=== PATIENT | female | born 1935 | race Caucasian/White ===

== ENCOUNTER → 2023-02-15 | Outpatient (CLI) | payer MEDICARE, SELFPAY ==
--- NOTE | 2023-02-15 08:38 | CDU_ITS ---
Reason For Study: CAROTID STENOSIS Rt. Velocities/BP Lt. Velocities/BP Prox CCA 73.0/15.4 cm/sec. Prox CCA 129.3/16.3 cm/sec. Mid CCA 79.6/15.4 cm/sec. Mid CCA 97.7/16.7 cm/sec. Dist CCA 90.0/22.0 cm/sec. Dist CCA 86.7/13.0 cm/sec. Prox ICA 77.6/12.7 cm/sec. Prox ICA 261.3/84.7 cm/sec. Mid ICA 94.1/14.9 cm/sec. Mid ICA 155.0/32.0 cm/sec. Dist ICA 159.4/34.2 cm/sec. Dist ICA 115.5/32.0 cm/sec. Rt. ICA/CCA = 159.4/79.6=2.0. Lt. ICA/CCA = 261.3/97.7=2.7. Prox ECA 77.6/4.0 cm/sec. Prox ECA 114.3/0.0 cm/sec. Rt. Vert. 54.5/16.0 cm/sec. Lt. Vert. 48.1/6.5 cm/sec. Right Extracranial There is heterogeneous, irregular atherosclerotic plaque noted in the right common carotid artery. There is heterogeneous, irregular atherosclerotic plaque noted in the right internal carotid artery. There is heterogeneous, irregular atherosclerotic plaque noted in the right external carotid artery. Antegrade flow is noted in the right vertebral artery. There is heterogeneous, irregular atherosclerotic plaque noted in the right bulb. Left Extracranial There is heterogeneous, irregular atherosclerotic plaque noted in the left common carotid artery. There is heterogeneous, irregular atherosclerotic plaque noted in the left internal carotid artery. The atherosclerotic plaque causes acoustic shadowing. There is heterogeneous, irregular atherosclerotic plaque noted in the left external carotid artery. Antegrade flow is noted in the left vertebral artery. There is heterogeneous, irregular atherosclerotic plaque noted in the left bulb. Procedure Carotid Duplex [id number]. This is a Carotid Duplex examination using B-mode, color flow and specral Doppler. Exam performed in department. VL/Carotid Duplex Ultrasound Interpretation Summary Mild (<50%) stenosis right extracranial internal carotid. Severe (>70%) stenosi s left extracranial internal carotid. Flow within the vertebral arteries is antegrade bilaterally. Ordering Physician: Israel Titus Referring Physician: Paola Rosario Performed By: Bharti Auguste, RASHEL, RVT
== END | disposition home or self-care (01) ==
PROVIDERS: PCP Internal Medicine; Referring Provider Surgery Vascular Surgery; Visit Provider Surgery Vascular Surgery
DX: I65.23 Occlusion and stenosis of bilateral carotid arteries (principal)
CPT/HCPCS: 93880

== ENCOUNTER → 2024-06-05 | Outpatient (CLI) | payer MEDICARE, OTHER, SELFPAY ==
--- NOTE | 2024-06-05 08:36 | CDU_ITS ---
Reason For Study Reason For Study: ICA Stenosis Rt. Velocities/BP Lt. Velocities/BP Prox CCA 84.5/17.1 cm/sec. Prox CCA 79.6/9.8 cm/sec. Mid CCA 87.1/17.1 cm/sec. Mid CCA 74.2/17.5 cm/sec. Dist CCA 126.0/24.9 cm/sec. Dist CCA 101.6/19.4 cm/sec. Prox ICA 72.3/13.9 cm/sec. Prox ICA 225.0/53.7 cm/sec. Mid ICA 94.5/22.2 cm/sec. Mid ICA 189.4/44.0 cm/sec. Dist ICA 93.9/17.8 cm/sec. Dist ICA 116.3/28.2 cm/sec. Rt. ICA/CCA = 1.1. Lt. ICA/CCA = 3.0. Prox ECA 64.8/0.0 cm/sec. Prox ECA 96.1/4.7 cm/sec. Rt. Vert. 97.9/15.7 cm/sec. Lt. Vert. 20.6/0.0 cm/sec. Right Extracranial There is heterogeneous, irregular atherosclerotic plaque noted in the right common carotid artery. The right common carotid artery is tortuous. There is heterogeneous, irregular atherosclerotic plaque noted in the right internal carotid artery. The right internal carotid artery is very tortuous. There is heterogeneous, irregular atherosclerotic plaque noted in the right external carotid artery. Antegrade flow is noted in the right vertebral artery. Left Extracranial There is heterogeneous, irregular atherosclerotic plaque noted in the left common carotid artery. The left common carotid artery is tortuous. There is heterogeneous, irregular atherosclerotic plaque noted in the left internal carotid artery. The left internal carotid artery is very tortuous. The atherosclerotic plaque causes acoustic shadowing. There is intimal thickening but no significant atherosclerotic plaque noted in the left external carotid artery. Antegrade flow is noted in the left vertebral artery. Procedure Carotid Duplex [id number]. This is a Carotid Duplex examination using B-mode, color flow and specral Doppler. The exam was diagnostic. Exam performed in department. VL/Carotid Duplex Ultrasound Interpretation Summary Mild (<50%) stenosis right extracranial internal carotid. Moderate (50-69%) mike nosis left extracranial internal carotid. Patent and antegrade vertebrals bilaterally. Ordering Physician: Israel Titus Referring Physician: Paola Rosario Performed By: Abe Kearns RVT
== END | disposition home or self-care (01) ==
PROVIDERS: PCP Internal Medicine; Referring Provider Surgery Vascular Surgery; Visit Provider Surgery Vascular Surgery
DX: I65.23 Occlusion and stenosis of bilateral carotid arteries (principal); I10 Essential (primary) hypertension; Z86.73 Personal history of transient ischemic attack (TIA), and cerebral infarction without residual deficits
CPT/HCPCS: 93880

== ENCOUNTER → 2024-07-07 | Outpatient (CLI) | payer MEDICARE, OTHER, SELFPAY ==
--- NOTE | 2024-07-07 09:21 | US_ITS ---
PROCEDURE: SPLEEN 07/07/2024 REASON FOR EXAM: SPLEEN SIZE TECHNIQUE: Ultrasound of the left upper quadrant. COMPARISON: None FINDINGS: Left kidney: Measures 8.6 cm. Mildly atrophic. Unremarkable cortex. Cyst measuring 1.4 x 1.3 x 1.2 cm and 0.8 x 0.7 x 0.7 cm. Spleen: Unremarkable. Measures 8.8 x 4.1 x 3.6 cm. Pancreas: Atrophic. Normal in echogenicity. US/Spleen IMPRESSION: Spleen measures 8.8 x 4.1 x 3.6 cm. Atrophic left kidney and pancreas. Cyst within the left kidney. Otherwise unr emarkable exam. Reading Location: [id number]
[2024-07-07 10:14] LABS: Hemoglobin 9.3 g/dL (12.0-15.0); Immature Platelet Fraction 17.9 % (1.0-7.9); Mean Corpuscular Hgb 29.1 pg (27.0-32.0); Mean Corpuscular Volume 93.8 fL (81-99); POSITIVE COUNT YES; POSITIVE DIFFERENTIAL YES; POSITIVE MORPHOLOGY YES; Platelet Count 154 K/mm3 (150-450); RBC Distribution Width CV 19.9 % (11.6-14.6); RBC Distribution Width SD 67.7 fl (35.1-43.9)
[2024-07-07 10:18] LABS: Differential Indicated MANUAL DIFF; White Blood Count 31.3 K/mm3 (4.4-11.0)
[2024-07-07 11:00] LABS: Basophil 1 % (0-1); Eosinophil 2 % (0-5); Lymphocyte 5 % (19-41); Metamyelocyte 15 % (0-1); Monocyte 6 % (0-10); Myelocyte 2 % (0-0); Neutrophil-Band 4 % (0-5); Neutrophil-Segmented 64 % (47-70); Promyelocyte 1 % (0-0); Total Cells Counted 100 (MANUAL DIFF)
[2024-07-07 11:04] LABS: Anisocytosis 1+; Platelet Estimate A (ADEQ); Platelet Morphology GIANT; Polychromasia 1+
[2024-07-07 11:07] LABS: Absolute Lymphocyte Count 1.56 X10^3/uL (0.83-4.51); Absolute Neutrophil Count 21.3 X10^3/uL (2.0-7.7)
[2024-07-07 11:08] LABS: Pathologist Review May foll
[2024-07-07 11:26] LABS: Ferritin 573 ng/mL (22-378); Iron 36 ug/dL (50-170); Iron Binding Capacity,Total 258 ug/dL (250-450); Iron Binding Capacity,Unsat 222 ug/dL (228-428)
== END | disposition home or self-care (01) ==
PROVIDERS: PCP Internal Medicine; Referring Provider Internal Medicine Hematology & Oncology; Visit Provider Internal Medicine Hematology & Oncology
DX: N18.32 Chronic kidney disease, stage 3b (principal); D63.1 Anemia in chronic kidney disease; D69.6 Thrombocytopenia, unspecified; D72.829 Elevated white blood cell count, unspecified
CPT/HCPCS: 76705; 82728; 83540; 83550; 85025; 85045